=== PATIENT | female | born 1950 | race Hispanic/Latino ===

== ENCOUNTER 2021-11-03 00:30 | Emergency (ER) | payer OTHER ==
[~2021-11-03] VITALS: Ht 154.9 cm; Wt 83.0 kg
[2021-11-03] MEDS ORDERED: DILTIAZEM 50MG VIAL IV ONE (00:36)
[2021-11-03 00:49] LABS: BASOPHILS % (AUTO) 0.6 % (0.0-5.0); EOSINOPHILS % (AUTO) 0.2 % (0.0-8.0); HEMATOCRIT 40.8 % (36-48); LYMPHOCYTES % (AUTO) 13.1 % (21.0-51.0); MEAN CORPUSCULAR HEMOGLOBIN 29.2 pg (27.0-33.0); MEAN CORPUSCULAR HGB CONC 33.6 g/dL (32.0-36.0); MONOCYTES % (AUTO) 3.7 % (3.0-13.0); NEUTROPHILS % (AUTO) 81.7 % (40.0-77.0); PLATELET COUNT (AUTO) 249 K/uL (130-400); RED BLOOD CELL COUNT(AUTO) 4.69 MIL/uL (4.00-5.50); RED CELL DISTRIBUTION WIDTH 14.3 % (11.0-15.5); WHITE BLOOD COUNT (AUTO) 11.8 K/uL (4.8-10.8)
[2021-11-03 00:56] LABS: CREATININE 1.2 mg/dL (0.5-1.5); POTASSIUM 4.4 mmol/L (3.5-5.1)
[2021-11-03 01:01] LABS: ALBUMIN 3.6 g/dL (3.5-5.0); TOTAL PROTEIN, SERUM 7.3 g/dL (6.0-8.3)
[2021-11-03 01:03] LABS: INR 0.97 (0.85-1.15); PROTHROMBIN TIME 10.6 SEC (9.6-11.6)
[2021-11-03] MEDS ORDERED: DILTIAZEM 125 MG/25 ML INJ IV ONE (01:11)
[2021-11-03] MEDS ORDERED: DILTIAZEM 25MG INJ IVP ONE (01:30)
[2021-11-03] MEDS ORDERED: DILTIAZEM 125 MG/25 ML INJ 125 MG in 0.9%NACL 100ML 100 ML IV SCH (01:30)
[2021-11-03] MEDS ORDERED: MIDAZOLAM HCL 5 MG/ML 2ML VIAL IV ONE (02:36)
[2021-11-03 04:34] VITALS: BP 132/74
== END 2021-11-03 04:41 | disposition home or self-care (01) ==
LOC: EDH 00:30
DX: I48.91 Unspecified atrial fibrillation (principal); E11.9 Type 2 diabetes mellitus without complications; E78.00 Pure hypercholesterolemia, unspecified; I10 Essential (primary) hypertension
CPT/HCPCS: 99285; 96374; 71045; 96375; 83735; 84484; 80053; 83880; 85025; 85610; 36415; 96376; 93005; J3490 ×2; J2250

== ENCOUNTER 2022-04-23 16:57 | Emergency (ER) | payer OTHER ==
[~2022-04-23] VITALS: Ht 154.9 cm; Wt 86.2 kg
[2022-04-23 17:27] LABS: BASOPHILS % (AUTO) 0.8 % (0.0-5.0); EOSINOPHILS % (AUTO) 2.1 % (0.0-8.0); HEMATOCRIT 39.2 % (36-48); LYMPHOCYTES % (AUTO) 30.9 % (21.0-51.0); MEAN CORPUSCULAR HEMOGLOBIN 28.2 pg (27.0-33.0); MEAN CORPUSCULAR HGB CONC 31.9 g/dL (32.0-36.0); MEAN CORPUSCULAR VOLUME 88.5 fL (79-99); MONOCYTES % (AUTO) 8.2 % (3.0-13.0); NEUTROPHILS % (AUTO) 56.9 % (40.0-77.0); PLATELET COUNT (AUTO) 295 K/uL (130-400); RED BLOOD CELL COUNT(AUTO) 4.43 MIL/uL (4.00-5.50); RED CELL DISTRIBUTION WIDTH 15.6 % (11.0-15.5); WHITE BLOOD COUNT (AUTO) 13.2 K/uL (4.8-10.8)
[2022-04-23] MEDS ORDERED: ONDANSETRON 4MG INJ IV ONE (17:30)
[2022-04-23] MEDS ORDERED: 0.9%NACL 1000ML 1,000 ML IV SCH (17:30)
[2022-04-23 17:37] LABS: CREATININE 0.8 mg/dL (0.5-1.5)
[2022-04-23 17:38] LABS: INR 1.24 (0.85-1.15); PROTHROMBIN TIME 13.4 SEC (9.6-11.6)
[2022-04-23 17:42] LABS: ALBUMIN 3.1 g/dL (3.5-5.0); TOTAL PROTEIN, SERUM 6.5 g/dL (6.0-8.3)
[2022-04-23] MEDS ORDERED: DOCU-116 PO (18:34)
[2022-04-23 18:42] VITALS: BP 160/92
== END 2022-04-23 18:43 | disposition home or self-care (01) ==
LOC: EDH 16:57
DX: K92.2 Gastrointestinal hemorrhage, unspecified (principal); I48.91 Unspecified atrial fibrillation; E11.9 Type 2 diabetes mellitus without complications; E78.00 Pure hypercholesterolemia, unspecified; I10 Essential (primary) hypertension
CPT/HCPCS: 99284; 96374; 96361; 80053; 85025; 85610; 85730; 36415; 93005; J7030; J2405

== ENCOUNTER 2022-08-09 06:48 | Emergency (ER) | payer OTHER ==
[~2022-08-09] VITALS: Ht 154.9 cm; Wt 85.3 kg
[~2022-08-09 06:48] MED LIST: DOCU-116 PO
[2022-08-09 07:14] LABS: HEMATOCRIT 37.7 % (36-48); MEAN CORPUSCULAR HEMOGLOBIN 24.6 pg (27.0-33.0); MEAN CORPUSCULAR HGB CONC 30.8 g/dL (32.0-36.0); PLATELET COUNT (AUTO) 294 K/uL (130-400); RED BLOOD CELL COUNT(AUTO) 4.71 MIL/uL (4.00-5.50); RED CELL DISTRIBUTION WIDTH 16.1 % (11.0-15.5); WHITE BLOOD COUNT (AUTO) 10.7 K/uL (4.8-10.8)
[2022-08-09 07:25] LABS: ALBUMIN 3.1 g/dL (3.5-5.0); CREATININE 0.6 mg/dL (0.5-1.5); POTASSIUM 4.2 mmol/L (3.5-5.1); TOTAL PROTEIN, SERUM 6.8 g/dL (6.0-8.3)
[2022-08-09] MEDS ORDERED: HYDRALAZINE 20MG/ML VIAL ONE (07:37)
[2022-08-09] MEDS ORDERED: HYDRALAZINE 20MG/ML VIAL IV ONE (08:00)
[2022-08-09 08:25] LABS: BASOPHILS % (MANUAL) 2 % (0-2); EOSINOPHILS % (MANUAL) 1 % (1-6); LYMPHOCYTES % (MANUAL) 32 % (22-44); MAN.DIFF COMMENT-IMPRESSION MANUAL DIFFERENTIAL; MONOCYTES % (MANUAL) 7 % (2-9); SEGMENTED NEUTROPHILS % 58 % (40-70)
[2022-08-09 08:26] LABS: PLATELET MORPHOLOGY COMMENT ADEQUATE
[2022-08-09] MEDS ORDERED: ONDANSETRON 4MG INJ IVP ONE (08:30)
[2022-08-09] MEDS ORDERED: MORPHINE 2 MG SYG IVP ONE (08:30)
[2022-08-09 08:51] LABS: APPEARANCE,URINE CLEAR (CLEAR); BILIRUBIN,URINE NEGATIVE (NEGATIVE); COLOR,URINE COLORLESS (YELLOW); GLUCOSE, URINE (UA) NEGATIVE (NEGATIVE); KETONES,URINE NEGATIVE (NEGATIVE); LEUKOCYTE ESTERASE ,URINE NEGATIVE Leu/uL (NEGATIVE); NITRATE,URINE NEGATIVE (NEGATIVE); OCCULT BLOOD,URINE NEGATIVE (NEGATIVE); PROTEIN,URINE NEGATIVE (NEGATIVE); UROBILINOGEN,URINE 0.2 mg/dL (0.2-1.0)
[2022-08-09 09:05] VITALS: BP 168/80
== END 2022-08-09 09:43 | disposition home or self-care (01) ==
LOC: EDH 06:48
DX: I16.0 Hypertensive urgency (principal); I48.91 Unspecified atrial fibrillation; E11.9 Type 2 diabetes mellitus without complications; E78.00 Pure hypercholesterolemia, unspecified; I10 Essential (primary) hypertension; Z79.899 Other long term (current) drug therapy
CPT/HCPCS: 99291; 96374; 96375; 84484; 80053; 85025; 81003; 36415; 71045; 93005; J0360; J2405

== ENCOUNTER 2022-11-03 10:56 | Emergency (ER) | payer OTHER ==
[~2022-11-03] VITALS: Ht 160 cm; Wt 81.6 kg
[2022-11-03 11:23] LABS: BASOPHILS # (AUTO) 0.08 K/uL (0.00-0.20); EOSINOPHILS # (AUTO) 0.16 K/uL (0.00-0.70); HEMATOCRIT 41.1 % (36-48); IMMATURE GRANULOCYTE ABSOLUTE 0.06 K/uL (0-1); LYMPHOCYTES # (AUTO) 1.9 K/uL (1.0-4.8); LYMPHOCYTES % (AUTO) 23.2 % (21.0-51.0); MEAN CORPUSCULAR HGB CONC 31.4 g/dL (32.0-36.0); MEAN CORPUSCULAR VOLUME 82.7 fL (79-99); MONOCYTES # (AUTO) 0.5 K/uL (0.1-1.0); MONOCYTES % (AUTO) 6.4 % (3.0-13.0); NEUTROPHILS # (AUTO) 5.4 K/uL (1.8-7.7); NEUTROPHILS % (AUTO) 66.7 % (40.0-77.0); PLATELET COUNT (AUTO) 251 K/uL (130-400); RED BLOOD CELL COUNT(AUTO) 4.97 MIL/uL (4.00-5.50); RED CELL DISTRIBUTION WIDTH 17.5 % (11.0-15.5); WHITE BLOOD COUNT (AUTO) 8.1 K/uL (4.8-10.8)
[2022-11-03] MEDS ORDERED: PANTOPRAZOLE 40 MG/VIAL IVP ONE (11:30)
[2022-11-03] MEDS ORDERED: 0.9%NACL 1000ML 1,000 ML IV ONE (11:30)
[2022-11-03] MEDS ORDERED: LIDOCAINE HCL 2% VISCOUS 15 ML UDCUP PO ONE (11:30)
[2022-11-03] MEDS ORDERED: ONDANSETRON 4MG INJ IVP ONE (11:30)
[2022-11-03] MEDS ORDERED: MAG/ALUM/SIMETH 30 ML UDCUP PO ONE (11:30)
[2022-11-03] MEDS ORDERED: MORPHINE 4 MG SYG IVP ONE (11:30)
[2022-11-03 12:17] LABS: CREATININE 0.9 mg/dL (0.5-1.5); POTASSIUM 3.6 mmol/L (3.5-5.1)
[2022-11-03 12:22] LABS: ALBUMIN 3.3 g/dL (3.5-5.0); BILIRUBIN,TOTAL 0.7 mg/dL (0.2-1.0); TOTAL PROTEIN, SERUM 6.7 g/dL (6.0-8.3)
[2022-11-03 12:27] LABS: MAGNESIUM 1.8 mg/dL (1.80-2.40)
[2022-11-03 12:56] LABS: ADD UA MICROSCOPIC YES; APPEARANCE,URINE CLEAR (CLEAR); BILIRUBIN,URINE NEGATIVE (NEGATIVE); COLOR,URINE LIGHT-YELLOW (YELLOW); GLUCOSE, URINE (UA) NEGATIVE (NEGATIVE); KETONES,URINE NEGATIVE (NEGATIVE); LEUKOCYTE ESTERASE ,URINE 75 Leu/uL (NEGATIVE); NITRATE,URINE NEGATIVE (NEGATIVE); OCCULT BLOOD,URINE NEGATIVE (NEGATIVE); PROTEIN,URINE NEGATIVE (NEGATIVE); UROBILINOGEN,URINE 0.2 mg/dL (0.2-1.0)
[2022-11-03 13:02] LABS: BACTERIA,URINE RARE /HPF (None Seen); MUCUS,URINE RARE LPF (None Seen); SQUAMOUS EPITHELIAL CELL,UR RARE /HPF (0-2); WBC,URINE 0-1 /HPF (0-1)
[2022-11-03] MEDS ORDERED: CEFTRIAXONE 1G VIAL IVPB ONE (13:40)
[2022-11-03 14:57] VITALS: BP 133/78; PULSE 78; RESP 18; O2SAT 98
== END 2022-11-03 14:59 | disposition home or self-care (01) ==
LOC: EDH 10:56
DX: K29.70 Gastritis, unspecified, without bleeding (principal); R10.13 Epigastric pain; R11.2 Nausea with vomiting, unspecified; I10 Essential (primary) hypertension; E78.00 Pure hypercholesterolemia, unspecified; E11.9 Type 2 diabetes mellitus without complications; I48.91 Unspecified atrial fibrillation
CPT/HCPCS: 99285; 96365; 96375; 76705; 71045; 96361; 82550; 83735; 83874; 84484; 80053; 83690; 85025; 87088; 81001; 36415; 93005 ×2; J7030; J0696; J2405; J2270; C9113

== ENCOUNTER → 2023-01-18 | Outpatient (CLI) | payer OTHER | END | disposition home or self-care (01) | LOC: RAH 11:04 | PROVIDERS: ATTEND Family Medicine | DX: Z12.31 Encounter for screening mammogram for malignant neoplasm of breast (principal) | CPT/HCPCS: 77067 ==

== ENCOUNTER → 2023-05-16 | Outpatient (CLI) | payer OTHER ==
[~2023-05-16] MED LIST changes: +AEC81 PO; +AMOX1TAB16 PO; +CLON0.1T PO; +METO-391 PO; +PANT40TA54 PO; +RIVA20TA PO; +ROSU5TAB12 PO; +TELM80TA10 PO
== END | disposition home or self-care (01) ==
LOC: OIH 15:29
PROVIDERS: ATTEND Internal Medicine Cardiovascular Disease
DX: Z13.6 Encounter for screening for cardiovascular disorders (principal)
CPT/HCPCS: 75571

== ENCOUNTER 2023-07-14 12:53 | Emergency (ER) | payer OTHER ==
[~2023-07-14] VITALS: Ht 154.9 cm; Wt 84.8 kg
[2023-07-14] MEDS: ONDANSETRON 4MG INJ IVP ONE (13:30)
[2023-07-14] MEDS: 0.9%NACL 1000ML 1,000 ML IV ONE (13:30)
[2023-07-14] MEDS: KETOROLAC 15MG/ML VIAL (15MG/ML) IV ONE (13:30)
[2023-07-14 13:35] LABS: APPEARANCE,URINE CLEAR (CLEAR); BILIRUBIN,URINE NEGATIVE (NEGATIVE); COLOR,URINE LIGHT-YELLOW (YELLOW); GLUCOSE, URINE (UA) NEGATIVE (NEGATIVE); KETONES,URINE 10 mg/dL (NEGATIVE); LEUKOCYTE ESTERASE ,URINE NEGATIVE Leu/uL (NEGATIVE); NITRATE,URINE NEGATIVE (NEGATIVE); OCCULT BLOOD,URINE MODERATE (NEGATIVE); PROTEIN,URINE 10 mg/dL (NEGATIVE); UROBILINOGEN,URINE 0.2 mg/dL (0.2-1.0)
[2023-07-14 13:39] LABS: ADD UA MICROSCOPIC YES
[2023-07-14 13:44] LABS: BACTERIA,URINE RARE /HPF (None Seen); MUCUS,URINE RARE LPF (None Seen); SQUAMOUS EPITHELIAL CELL,UR RARE /HPF (0-2)
[2023-07-14 13:48] LABS: BASOPHILS # (AUTO) 0.06 K/uL (0.00-0.20); BASOPHILS % (AUTO) 0.6 % (0.0-5.0); EOSINOPHILS # (AUTO) 0.12 K/uL (0.00-0.70); EOSINOPHILS % (AUTO) 1.1 % (0.0-8.0); IMMATURE GRANULOCYTE ABSOLUTE 0.05 K/uL (0-1); LYMPHOCYTES # (AUTO) 0.7 K/uL (1.0-4.8); LYMPHOCYTES % (AUTO) 6.9 % (21.0-51.0); MEAN CORPUSCULAR HEMOGLOBIN 27.3 pg (27.0-33.0); MEAN CORPUSCULAR HGB CONC 32.1 g/dL (32.0-36.0); MEAN CORPUSCULAR VOLUME 85.1 fL (79-99); MONOCYTES % (AUTO) 9.5 % (3.0-13.0); NEUTROPHILS # (AUTO) 8.6 K/uL (1.8-7.7); NEUTROPHILS % (AUTO) 81.4 % (40.0-77.0); PLATELET COUNT (AUTO) 284 K/uL (130-400); RED BLOOD CELL COUNT(AUTO) 5.05 MIL/uL (4.00-5.50); RED CELL DISTRIBUTION WIDTH 15.8 % (11.0-15.5); WHITE BLOOD COUNT (AUTO) 10.6 K/uL (4.8-10.8)
[2023-07-14 14:03] LABS: ALBUMIN 3.6 g/dL (3.5-5.0); BILIRUBIN,TOTAL 0.8 mg/dL (0.2-1.0); CREATININE 0.8 mg/dL (0.5-1.0); POTASSIUM 3.5 mmol/L (3.5-5.1); TOTAL PROTEIN, SERUM 7.6 g/dL (6.0-8.3)
[2023-07-14 14:08] LABS: INFLUENZA TYPE A Negative For Type A (NEGATIVE); INFLUENZA TYPE B Negative For Type B (NEGATIVE)
[2023-07-14 14:19] LABS: COVID19 (SARS ANTIGEN RAPID) POSITIVE FOR SARS AG (NEGATIVE)
[2023-07-14 14:31] VITALS: BP 149/73; PULSE 80; RESP 19; O2SAT 96
== END 2023-07-14 14:41 | disposition home or self-care (01) ==
LOC: EDH 12:53
DX: U07.1 COVID-19 (principal); R50.9 Fever, unspecified; R51.9 Headache, unspecified; E11.9 Type 2 diabetes mellitus without complications; E78.00 Pure hypercholesterolemia, unspecified; I10 Essential (primary) hypertension; I48.91 Unspecified atrial fibrillation; Z79.01 Long term (current) use of anticoagulants; Z79.82 Long term (current) use of aspirin; Z79.899 Other long term (current) drug therapy
CPT/HCPCS: 99285; 96374; 71045; 96361; 96375; 87426; 84484; 80053; 85025; 87040 ×2; 87804 ×2; 83605; 81001; 36415; 93005; J7030; J2405; J1885

== ENCOUNTER → 2024-01-18 | Outpatient (CLI) | payer OTHER ==
[~2024-01-18] MED LIST changes: -ROSU5TAB12 PO; +ROSU5TAB43 PO
== END | disposition home or self-care (01) ==
LOC: RAH 15:05
PROVIDERS: ATTEND Internal Medicine
DX: Z12.31 Encounter for screening mammogram for malignant neoplasm of breast (principal); R92.323 Mammographic fibroglandular density, bilateral breasts
CPT/HCPCS: 77067

== ENCOUNTER → 2024-06-06 | Outpatient (CLI) | payer OTHER ==
[~2024-06-06] MED LIST changes: -ROSU5TAB43 PO; +ROSU5TAB51 PO
--- NOTE | 2024-06-06 09:53 | HMCIMG ---
LEFT SHOULDER RADIOGRAPHS - 2-3 VIEWS INDICATION: Pain COMPARISON: None FINDINGS: No evidence for acute fracture or dislocation. Acromioclavicular and glenohumeral alignments are well maintained. Visible portions of the left clavicle are intact. No significant degenerative joint disease. Mild calcific plaque is present along the aortic arch daugherty. IMPRESSION: No radiographic evidence for any acute left shoulder abnormality.
--- NOTE | 2024-06-06 09:54 | HMCIMG ---
RIGHT SHOULDER RADIOGRAPHS - 2-3 VIEWS INDICATION: Pain COMPARISON: None FINDINGS: No fracture or dislocation identified. Acromioclavicular and glenohumeral alignments are well maintained. Visible portions of the right clavicle are intact. Extensive inferior acromial spurring. Nominal acromioclavicular joint osteoarthropathy. Narrowing of the acromiohumeral space. IMPRESSION: Findings suggesting external impingement and possible underlying chronic rotator cuff tear.
== END | disposition home or self-care (01) ==
LOC: RAH 08:41
PROVIDERS: ATTEND Internal Medicine
DX: M19.011 Primary osteoarthritis, right shoulder (principal); M79.601 Pain in right arm; M79.602 Pain in left arm; M77.8 Other enthesopathies, not elsewhere classified; I70.0 Atherosclerosis of aorta
CPT/HCPCS: 73030

== ENCOUNTER 2024-12-04 07:19 | Inpatient (IN) | payer OTHER ==
[2024-12-03 10:15] VITALS: BP 104/62; PULSE 59; RESP 13; TEMP 97.2
[2024-12-03 10:19] LABS: IMMATURE GRANULOCYTE ABSOLUTE 0.02 K/uL (0-1); NUCLEATED RED BLOOD CELLS 0.0 % (0.0-0.19); PLATELET COUNT (AUTO) 239 K/uL (130-400); RED BLOOD CELL COUNT(AUTO) 4.99 MIL/uL (4.00-5.50); RED CELL DISTRIBUTION WIDTH 14.8 % (11.0-15.5); WHITE BLOOD COUNT (AUTO) 7.3 K/uL (4.8-10.8)
[2024-12-03 10:28] LABS: INR 1.02 (0.85-1.15)
[2024-12-03 10:33] LABS: APPEARANCE,URINE CLOUDY (CLEAR); GLUCOSE, URINE (UA) NEGATIVE (NEGATIVE); LEUKOCYTE ESTERASE ,URINE NEGATIVE Leu/uL (NEGATIVE); NITRATE,URINE NEGATIVE (NEGATIVE); OCCULT BLOOD,URINE NEGATIVE (NEGATIVE)
[2024-12-03 10:40] LABS: ADD UA MICROSCOPIC YES
--- NOTE | 2024-12-03 10:40 | NUR ---
RE: IS INITIAL IS INITIAL TEACHING DONE BY RT ROMAINE DURING PREOP.
[2024-12-03 10:43] LABS: HYALINE CASTS, URINE 26-50 /LPF (0-1 /LPF); SQUAMOUS EPITHELIAL CELL,UR Rare /HPF (0-2)
[2024-12-03 10:56] LABS: CREATININE 1.1 mg/dL (0.5-1.0); GLOMERULAR FILTR. RATE CALC 53.0 mL/min (>90); GLUCOSE,RANDOM 97.0 mg/dL (70-105); SODIUM SERUM 139.0 mmol/L (136-145); UREA NITROGEN, BLOOD 17.0 mg/dL (7-18)
[~2024-12-04] VITALS: Ht 154.9 cm; Wt 85.4 kg
[2024-12-04] VITALS (27 sets, daily range): BP systolic 103–155; BP diastolic 60–87; PULSE 61–75; RESP 15–20; TEMP 97.5–98.6; O2SAT 93
[~2024-12-04 07:19] MED LIST changes: -AEC81 PO; +ALEN70TA80 PO; -AMOX1TAB16 PO; +BRIM5DRO5 OU; +CHOL500051 PO; -CLON0.1T PO; -DOCU-116 PO; +HYDR-4060 PO; +LIDOCAINE PF 100MG/5ML (2%) SYRINGE 5ML ONE; +LOSA1TAB37 PO; +MIDAZOLAM HCL 1 MG/ML 2ML VIAL ONE; +NETA2.5D3 OU; +NIFE-78 PO; -PANT40TA54 PO; +ROSU20TA98 PO; -ROSU5TAB51 PO; +SUCCINYLCHOLINE CHLORIDE 20 MG/ML 10 ML VIAL ONE; -TELM80TA10 PO; +TIMO.5OS OU; +TRANEXAMIC ACID 1000MG/10ML ONE; +VANCOMYCIN 500MG+NS 100ML 100 ML IV ONE
--- NOTE | 2024-12-04 08:53 | EKG ---
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
[2024-12-04] MEDS: LACTATED RINGERS 1000ML 1,000 ML IV ONE (09:01)
[2024-12-04] MEDS: SUGAMMADEX SODIUM 200 MG/2 ML VIAL IV ONE (10:23)
--- NOTE | 2024-12-04 11:19 | OP ---
Operative Note: DATE OF PROCEDURE: 12/04/24 SURGEON: SHAWNA BANERJEE MD TIMBER FRAMER: [Marleny Joe CFA] ANESTHESIA: [General anesthesia plus regional block] ANESTHESIOLOGIST/FORGE HELPER: [Shayne Prado CRNA] PREOPERATIVE DIAGNOSIS: [Left knee osteoarthritis] POSTOPERATIVE DIAGNOSIS: [Left knee osteoarthritis] IMPLANTS: [BIOMET VANGUARD. Femur size 65 right PS. Tibia size 67 fixed cruciate. Patella size 31 x 8, asymmetric. Tibial liner size 10 x 63/67 PS] PROCEDURE: [Left total knee arthroplasty] ESTIMATED BLOOD LOSS: [100 mL] INDICATIONS: [Patient is a 74 year old female with a history of severe pain to the left knee that has no longer responded to conservative treatment. The patient has an x-ray that reveals severe arthrosis of the knee mostly motor of the medial compartment. She has been brought to the operating room for a total knee arthroplasty, procedure that she understood, risks, benefits and possible complications and agreed signed the consent form] DESCRIPTION OF PROCEDURE: [After adequate general anesthesia was achieved and regional block obtained the right lower extremity was prepped and draped in the usual manner previous placement of the tourniquet in the proximal thigh. The extremity was then elevated and exsanguinated with an Esmarch bandage and the tourniquet inflated to 250 mmHg the Esmarch band been then removed. With the knee in flexion a longitudinal incision was then made in the anterior aspect through the skin followed by dissection of the subcutaneous tissue. A bone infusion needle was then inserted just medial to the tibial tuberosity and through this needle we injected into the bone a solution of normal saline 50 mL mixed with 500 mg of vancomycin. The needle was removed. A paramedian approach was then made with the Bovie cautery cutting through the quadriceps tendon, medial patellar retinaculum and patellar tendon retinaculum. The retropatellar tendon fat was then excised and the soft tissue elements of the tibia were elevated subperiosteally and retractors were applied medially and laterally . The anterior and posterior cruciate ligaments were resected. With the use of a drill a starting hole was made in the distal femur entering the intramedullary canal and then after removal of the drill an intramedullary guide was inserted with a 5 degree valgus block that touched the distal femur and to this the distal femoral cutting guide was then applied anteriorly and was secured to the distal femur with the use of pins. The intramedullary guide was then removed and with the use of the oscillating saw we proceeded to resect the distal femur removing the fragments and the guide. The femoral sizer was then applied distally and drill holes were made removing the sizer and the 4-in-1 cutting block was then inserted and the anterior, posterior and chamfer cuts were made removing the fragments and the block. The PS cutting guide was then inserted and the intercondylar cut was made removing the fragment and the guide. The posterior cruciate ligament retractor was then inserted posterior to the tibia and this was brought forward proceeding then to apply the external tibial ali gnment guide and secured the proximal cutting guide to the tibia with the use of pins. With the use of the oscillating saw the proximal cut to the tibia tibia was made. The bone fragment was removed and the trial tibia plate was chosen. At this point the menisci were removed sharply and and after cutting the medial side it was noted that the patient had a large Doyle cyst that drain significant amount of fluid under the cyst complete distal fear from the posterior aspect of the medial gastrocnemius area. With the use of the curved osteotome the posterior osteophytes of the femur were removed. The trial components were then inserted at the femur and tibia with a trial tibial liner bringing the knee into extension noticing that the patient had a very stable knee in flexion, extension and with valgus and varus stress. The knee was maintained in extension and the patella was then addressed proceeding to measure its thickness and then with the use of the oscillating saw we removed eight mm from the articular s urface and restored the height with application of a trial component after 3 peg holes were made. The patellofemoral ligament was removed and then the patellofemoral tracking was checked noticing to be slightly lateralized and for this reason a small lateral release was done, correcting the problem the tracking going back to normal. At this moment all the components were removed, the tibia after the metaphyseal defect was created and while cement was being mixed on the back table we proceeded to irrigate the joint with antibiotic solution and then cover the entry to the femoral canal with a bone plug. Once the cement was ready we proceeded to apply it first to the tibia surface inserting the final component and then to the femoral surface and inserted the final component removing the excess cement and then applying a trial liner bringing the knee into extension for compression. Then we proceeded to irrigate the patella surface and dried it applying then bone cement and the final patellar component was inserted and was secured with application of a clamp. The joint was irrigated with a warm diluted Betadine solution while the cement dried followed by irrigation with antibiotic solution. The trial liner was removed as well as the patellar clamp and we proceeded then to irrigate the posterior aspect of the joint to remove all the remaining debris and the final tibial liner was inserted and locked against the tibia. The range of motion was checked and noticed to be adequate with full extension and flexion, no laxity in valgus or varus stress and with adequate patellofemoral tracking. The patient had no anterior or posterior drawer. The tourniquet was then deflated and this was followed by hemostasis and the wound was then closed with approximation of the quadriceps tendon, patellar retinaculum and patellar tendon retinaculum with #1 Vicryl close stitches alternating with #1 Ethibond stitches, and closure of the subcutaneous tissue with 2-0 Monocryl inverted stitches and the skin was closed with 3-0 Monocryl subcuticularly. The wound was covered with a suction dressing followed by application of an Candelario bandage for compression and the d rapes were then removed transferring the patient to the hospital bed and taken to recovery room for follow-up by anesthesia. There were no complications during the procedure.] SHAWNA BANERJEE MD Dec 04, 2024 11:19
[2024-12-04] MEDS ORDERED: FERROUS FUMARATE 324 MG TABLET PO PRN (11:30)
[2024-12-04] MEDS ORDERED: CALCIUM CARB 500MG PO PRN (11:30)
[2024-12-04] MEDS ORDERED: PoTASSium chl 10% ELIXIR 20MEQ 20 MEQ/15 ML UDCUP PO PRN (11:30)
[2024-12-04] MEDS ORDERED: HYDROcodone/APAP 5/325 1 TAB TABLET PO PRN (11:30)
[2024-12-04] MEDS: 0.9%NACL 1000ML 1,000 ML IV SCH (12:40)
--- NOTE | 2024-12-04 12:40 | NUR ---
PT ARRIVED TO UNIT. S/P RT TKA, DRESSING DRY AND INTACT. AAO, MILD PAIN, DROWSY. POST OP VITALS CONNECTED. BP STABLE. CHARGE NURSE AT BEDSIDE. WILL CONTINUE TO MONITOR.
--- NOTE | 2024-12-04 12:40 | NUR ---
PT is received from the recovery room. She is alert and in no distress. Patient is oriented to the room and is updated on the current treatment plan. PT agreed to notify nursing with the call butler for any of her needs. SCDs are placed to both lower extremities. IV fluids are running by IV pumpt into a 20 g PIV located in her left hand. ICE is applied to the right knee over the compression wrap. YUVAL dressing device is secured in the patient's pocket and she is educated on its purpose. The call butler is left in reach and the bed is in a low position.
--- NOTE | 2024-12-04 13:29 | OP ---
Operative Note: DATE OF PROCEDURE: 12/04/24 SURGEON: SHAWNA BANERJEE MD BLAST FURNACE KEEPER HELPER: [Eriberto Kraus CFA] ANESTHESIA: [General anesthesia plus regional block] ANESTHESIOLOGIST/ROLE PLAYER: [Shayne Prado CRNA] PREOPERATIVE DIAGNOSIS: [Right knee osteoarthritis] POSTOPERATIVE DIAGNOSIS: [Right knee osteoarthritis] IMPLANTS: [BIOMET VANGUARD. Femur size 65 right PS. Tibia size 67 fixed cruciate. Patella size 31 x 8, asymmetric. Tibial liner size 10 x 63/67 PS] PROCEDURE: [Right total knee arthroplasty] ESTIMATED BLOOD LOSS: [100 mL] INDICATIONS: [Patient is a 74 year old female with a history of severe pain to the right knee that has no longer responded to conservative treatment. The patient has an x-ray that reveals severe arthrosis of the knee mostly motor of the medial compartment. She has been brought to the operating room for a total knee arthroplasty, procedure that she understood, risks, benefits and possible complications and agreed signed the consent form] DESCRIPTION OF PROCEDURE: [After adequate general anesthesia was achieved and regional block obtained the right lower extremity was prepped and draped in the usual manner previous placement of the tourniquet in the proximal thigh. The extremity was then elevated and exsanguinated with an Esmarch bandage and the tourniquet inflated to 250 mmHg the Esmarch band been then removed. With the knee in flexion a longitudinal incision was then made in the anterior aspect through the skin followed by dissection of the subcutaneous tissue. A bone infusion needle was then inserted just medial to the tibial tuberosity and through this needle we injected into the bone a solution of normal saline 50 mL mixed with 500 mg of vancomycin. The needle was removed. A paramedian approach was then made with the Bovie cautery cutting through the quadriceps tendon, medial patellar retinaculum and patellar tendon retinaculum. The retropatellar tendon fat was then excised and the soft tissue elements of the tibia were elevated subperiosteally and retractors were applied medially and laterally . The anterior and posterior cruciate ligaments were resected. With the use of a drill a starting hole was made in the distal femur entering the intramedullary canal and then after removal of the drill an intramedullary guide was inserted with a 5 degree valgus block that touched the distal femur and to this the distal femoral cutting guide was then applied anteriorly and was secured to the distal femur with the use of pins. The intramedullary guide was then removed and with the use of the oscillating saw we proceeded to resect the distal femur removing the fragments and the guide. The femoral sizer was then applied distally and drill holes were made removing the sizer and the 4-in-1 cutting b lock was then inserted and the anterior, posterior and chamfer cuts were made removing the fragments and the block. The PS cutting guide was then inserted and the intercondylar cut was made removing the fragment and the guide. The posterior cruciate ligament retractor was then inserted posterior to the tibia and this was brought forward proceeding then to apply the external tibial alignment guide and secured the proximal cutting guide to the tibia with the use of pins. With the use of the oscillating saw the proximal cut to the tibia tibia was made. The bone fragment was removed and the trial tibia plate was chosen. At this point the menisci were removed sharply. With the use of the curved osteotome the posterior osteophytes of the femur were removed. The trial components were then inserted at the femur and tibia with a trial tibial liner bringing the knee into extension noticing that the patient had a very stable knee in flexion, extension and with valgus and varus stress. The knee was maintained in extension and the patella was then addressed proceeding to measure its thickness and then with the use of the oscillating saw we removed eight mm from the articular surface and restored the height with application of a trial component after 3 peg holes were made. The patellofemoral ligament was removed and then the patellofemoral tracking was checked noticing to be slightly lateralized and for this reason a small lateral release was done, correcting the problem the tracking going back to normal. At this moment all the components were removed, the tibia after the metaphyseal defect was created and while cement was being mixed on the back table we proceeded to irrigate the joint with antibiotic solution and then cover the entry to the femoral canal with a bone plug. Once the cement was ready we proceeded to apply it first to the tibia surface inserting the final component and then to the femoral surface and inserted the final component removing the excess cement and then applying a trial liner bringing the knee into extension for compression. Then we proceeded to irrigate the patella surface and dried it applying then bone cement and the final patellar component was inserted and was secured with application of a clamp. The joint was irrigated with a warm diluted Betadine solution while the cement dried followed by irrigation with antibiotic solution. The trial liner was removed as well as the patellar clamp and we proceeded then to irrigate the posterior aspect of the joint to remove all the remaining debris and the final tibial liner was inserted and locked against the tibia. The range of motion was checked and noticed to be adequate with full extension and flexion, no laxity in valgus or varus stress and with adequate patellofemoral tracking. The patient had no anterior or posterior drawer. The tourniquet was then deflated and this was followed by hemostasis and the wound was then closed with approximation of the quadriceps tendon, patellar retinaculum and patellar tendon retinaculum with #1 Vicryl close stitches alternating with #1 Ethibond stitches, and closure of the subcutaneous tissue with 2-0 Monocryl inverted stitches and the skin was closed with 3-0 Monocryl subcuticularly. The wound was covered with a suction dressing followed by application of an Candelario bandage for compression and the drapes were then removed transferring the patient to the hospital bed and taken to recovery room for follow-up by anesthesia. There were no complications during the procedure.] SHAWNA BANERJEE MD, JOSE A MD Dec 04, 2024 13:29
--- NOTE | 2024-12-04 15:00 | NUR ---
Ortho Coordinator: Teaching regarding DVT and pneumonia prevention, pain expectations and pain management. Patient in bed. Son at bedside. Candelario wrap and ice pack to right knee. YUVAL system intact and functioning. B SCD's intact and functioning. No incentive spirometer at bedside. Patient return demonstrated proper foot flexion and extension exercises, rationale provided. Patient encouraged to perform self pain assessments every four hours at the minimum. Pain medication regimen reviewed. Numeric pain scale reviewed, patient instructed to provide number value and type of pain. Reminded patient pain medication must be requested and call when needed. Patient intends to discharge to rehab, reviewed process. Set expectation for patient to shower tomorrow, rationale provided. Patient verbalized understanding to all instructions. No additional questions or concerns. 1510 Report to primary nurse. Primary nurse has yet to call for respiratory as physical therapy was evaluating patient. Primary nurse will notify respiratory therapy.
--- NOTE | 2024-12-04 15:14 | NUR ---
DC PLAN VISITED WITH PATIENT. GAVE LIST OF [facility] IN NETWORK WITH INSURANCE. EXPLAINED THAT [facility] DID NOT APPEAR TO BE IN NETWORK. WOULD TRY IF PATIENT WANTED. FROM LIST FROM [facility]. LUBNA SIGNED. PACKET MADE AND SENT. Addendum: 12/04/24 at 1516 by PALAK LINK RN CM Amended: Links added.
[2024-12-04] MEDS: HYDROcodone/APAP 5/325 1 TAB TABLET PO PRN (17:45)
[2024-12-04] MEDS: LOSARTAN/HYDROCHLOROTHIAZIDE 50-12.5MG TABLET PO SCH (20:06)
[2024-12-04] MEDS: PoTASSium chloRIDE 20MEQ ER 20 MEQ ERTAB PO PRN (20:13)
[2024-12-04] MEDS: FAMOTIDINE 20MG TAB PO SCH (20:13)
[2024-12-04] MEDS: LATANOPROST OU SCH (20:14)
[2024-12-04] MEDS: TIMOLOL MALEATE 0.5% 5 ML BOTTLE OU SCH (20:14)
[2024-12-04] MEDS: NETARSUDIL MESYLAT OU SCH (20:14)
[2024-12-04] MEDS: RIVAROXABAN 20 MG TABLET PO SCH (20:20)
[2024-12-04] MEDS ORDERED: RIVAROXABAN 20 MG TABLET PO SCH (21:00)
[2024-12-05] VITALS (7 sets, daily range): BP systolic 103–132; BP diastolic 59–77; PULSE 64–68; RESP 16–18; TEMP 96–98.7; O2SAT 94–99
[2024-12-05 06:08] LABS: NUCLEATED RED BLOOD CELLS 0.0 % (0.0-0.19); PLATELET COUNT (AUTO) 190.0 K/uL (130-400); RED BLOOD CELL COUNT(AUTO) 3.66 MIL/uL (4.00-5.50); RED CELL DISTRIBUTION WIDTH 14.9 % (11.0-15.5); WHITE BLOOD COUNT (AUTO) 11.7 K/uL (4.8-10.8)
--- NOTE | 2024-12-05 06:30 | NUR ---
nurse note patient alert and oriented times 4. daughter in law at bedside. patient is ambulatory with assistance and with a walker to the restroom. she has moderate to severe pain tonight relieved by pain medication. I removed the reynaldo bandage as ordered. call light within reach, ice packs applied, scd's on, patient is now on the chair. will continue to monitor patient.
--- NOTE | 2024-12-05 06:32 | NUR ---
chair took patient to the chair this morning. ice packs applied to right knee. reynaldo bandage removed. scd's on. call light within reach.
[2024-12-05 06:42] LABS: CREATININE 0.9 mg/dL (0.5-1.0); GLOMERULAR FILTR. RATE CALC 68.0 mL/min (>90); GLUCOSE,RANDOM 127.0 mg/dL (70-105); SODIUM SERUM 138.0 mmol/L (136-145); UREA NITROGEN, BLOOD 18.0 mg/dL (7-18)
--- NOTE | 2024-12-05 15:20 | NUR ---
Ortho Coordinator: Reinforced teaching. Patient in bed. YUVAL dressing clean, dry and intact. System functioning as indicated by light blinking green. B SCD s in place and functioning. Incentive spirometer at bedside. Patient able to verbalized frequency of use and reports using. Patient reports pain controlled. Patient intends to discharge to SNF, next steps and expectations reviewed. Patient encouraged to continue use of incentive spirometer until achieves and increase in activity, to continue foot flexion and extension exercises, to continue premedicating prior to physical therapy and periods of high activity, to ambulate and hydrate. Patient encouraged to shower today, rationale provided. Rationale provided for all instructions. Patient verbalized understanding. No additional questions or concerns at this time. 1530 Discussion with primary nurse that ortho coordinator set expectation with patient to shower today. Primary nurse acknowledged communication.
--- NOTE | 2024-12-05 17:26 | PN ---
Postop day 1. Status post total knee arthroplasty. Vital signs stable, afebrile. Labs reviewed. Patient informed about the findings of the surgery. She has adequate pain control. Did well with physical therapy She is awake, alert and oriented She is in no respiratory distress Dressing is intact, distal neurovascular exam is normal. Assessment: Status post total knee arthroplasty. Plan: Case management working on placement. Continue physical therapy Vitals/Labs Vital Signs Date Time Temp Pulse Resp B/P (MAP) Pulse Ox O2 Delivery O2 Flow Rate FiO2 12/05/24 16:05 96.8 68 18 132/77 95 Room Air 21 12/05/24 08:20 0 Laboratory Tests 12/05/24 05:16 Medications Current Medications Tranexamic Acid 1,000 mg STK-MED ONCE .ROUTE; Start 12/04/24 at 06:57; Stop 12/04/24 at 06:58; Status DC Vancomycin HCl 100 ml @ As Directed STK-MED ONCE IV; Start 12/04/24 at 06:57; Stop 12/04/24 at 06:58; Status DC Cefazolin Sodium 1 gm STK-MED ONCE .ROUTE; Start 12/04/24 at 06:58; Stop 12/04/24 at 06:58; Status DC Lidocaine HCl 100 mg STK-MED ONCE .ROUTE; Start 12/04/24 at 07:12; Stop 12/04/24 at 07:12; Status DC Dexamethasone Sodium Phosphate 10 mg STK-MED ONCE .ROUTE; Start 12/04/24 at 07:12; Stop 12/04/24 at 07:12; Status DC Succinylcholine Chloride 200 mg STK-MED ONCE .ROUTE; Start 12/04/24 at 07:12; Stop 12/04/24 at 07:12; Status DC Propofol 200 mg STK-MED ONCE IV; Start 12/04/24 at 07:13; Stop 12/04/24 at 07:13; Status DC Midazolam HCl 2 mg STK-MED ONCE .ROUTE; Start 12/04/24 at 07:13; Stop 12/04/24 at 07:13; Status DC Fentanyl Citrate 100 mcg STK-MED ONCE .ROUTE; Start 12/04/24 at 07:13; Stop 12/04/24 at 07:14; Status DC Ketamine HCl 50 mg STK-MED ONCE .ROUTE; Start 12/04/24 at 07:16; Stop 12/04/24 at 07:16; Status DC Rocuronium [place] 50 mg STK-MED ONCE .ROUTE; Start 12/04/24 at 07:16; Stop 12/04/24 at 07:16; Status DC Phenylephrine HCl 10 mg STK-MED ONCE IV; Start 12/04/24 at 07:21; Stop 12/04/24 at 07:21; Status DC Ropivacaine 150 mg STK-MED ONCE .ROUTE; Start 12/04/24 at 07:21; Stop 12/04/24 at 07:22; Status DC Cefazolin Sodium 2 gm STK-MED ONCE .ROUTE; Start 12/04/24 at 07:42; Stop 12/04/24 at 07:42; Status DC Lactated Ringer's 1,000 ml @ As Directed STK-MED ONCE IV Last administered on 12/04/24at 09:01; Start 12/04/24 at 07:42; Stop 12/04/24 at 07:43; Status DC Ephedrine Sulfate 50 mg STK-MED ONCE .ROUTE; Start 12/04/24 at 09:20; Stop 12/04/24 at 09:20; Status DC Fentanyl Citrate 100 mcg STK-MED ONCE .ROUTE; Start 12/04/24 at 10:00; Stop 12/04/24 at 10:00; Status DC Cefazolin Sodium 2 gm STK-MED ONCE IVPB Last administered on 12/04/24at 09:32; Start 12/04/24 at 09:32; Stop 12/04/24 at 10:05; Status DC Tranexamic Acid 1,000 mg STK-MED ONCE IV Last administered on 12/04/24at 09:35; Start 12/04/24 at 09:35; Stop 12/04/24 at 10:05; Status DC Cefazolin Sodium 3 gm STK-MED ONCE IVPB Last administered on 12/04/24at 09:49; Start 12/04/24 at 09:49; Stop 12/04/24 at 10:05; Status DC Vancomycin HCl 500 mg STK-MED ONCE IJ Last administered on 12/04/24at 10:00; Start 12/04/24 at 10:00; Stop 12/04/24 at 10:05; Status DC Rocuronium [place] 50 mg STK-MED ONCE .ROUTE; Start 12/04/24 at 10:22; Stop 12/04/24 at 10:22; Status DC Sodium Chloride 1,000 ml @ 100 mls/hr Q10H IV Last administered on 12/05/24at 02:11; Start 12/04/24 at 11:30; Stop 12/05/24 at 03:45; Status DC Polyethylene Glycol 17 gm DAILY PO Last administered on 12/05/24at 09:59; Start 12/05/24 at 09:00; Stop 01/04/25 at 08:59 Bisacodyl 10 mg DAILY PRN RC; Start 12/07/24 at 11:30; Stop 01/06/25 at 11:29 Ketorolac Tromethamine 15 mg Q6H PRN IV Last administered on 12/05/24at 17:00; Start 12/04/24 at 11:30; Stop 12/09/24 at 11:29 Famotidine 20 mg BID PO Last administered on 12/05/24at 09:57; Start 12/04/24 at 21:00; Stop 01/03/25 at 20:59 Ferrous Fumarate 324 mg DAILY PRN PO; Start 12/04/24 at 11:30; Stop 01/03/25 at 11:29 Temazepam 15 mg HS PRN PO; Start 12/04/24 at 11:30; Stop 01/03/25 at 11:29 Ondansetron HCl 4 mg Q6H PRN IVP; Start 12/04/24 at 11:30; Stop 01/03/25 at 11:29 Calcium Carbonate 500 mg Q12H PRN PO; Start 12/04/24 at 11:30; Stop 01/03/25 at 11:29 Diphenhydramine HCl 25 mg Q6H PRN IVP; Start 12/04/24 at 11:30; Stop 01/03/25 at 11:29 Cefazolin Sodium 2 gm Q8H IVPB Last administered on 12/04/24at 23:32; Start 12/04/24 at 16:30; Stop 12/05/24 at 00:31; Status DC Potassium Chloride 100 ml @ 100 mls/hr AD PRN IV; Start 12/04/24 at 11:30; Stop 01/03/25 at 11:29 Potassium Chloride 20 meq AD PRN PO; Start 12/04/24 at 11:30; Stop 01/03/25 at 11:29 Potassium Chloride 20 meq AD PRN PO Last administered on 12/04/24at 20:13; Start 12/04/24 at 11:30; Stop 01/03/25 at 11:29 Acetaminophen/ Hydrocodone Bitart Q4H PRN PO; Start 12/04/24 at 11:30; Stop 12/04/24 at 11:29; Status DC Acetaminophen/ Hydrocodone Bitart 1 tab Q4H PRN PO; Start 12/04/24 at 11:30; Stop 12/09/24 at 11:29 Acetaminophen/ Hydrocodone Bitart 2 tab Q4H PRN PO Last administered on 12/05/24at 15:10; Start 12/04/24 at 11:30; Stop 12/09/24 at 11:29 Fentanyl Citrate 25 mcg ONCE ONCE IVP; Start 12/04/24 at 12:00; Stop 12/04/24 at 12:01; Status DC Fentanyl Citrate 100 mcg STK-MED ONCE .ROUTE Last administered on 12/04/24at 11:51; Start 12/04/24 at 11:46; Stop 12/04/24 at 11:46; Status DC HCTZ/Losartan Potassium 1 tab BID PO Last administered on 12/05/24at 09:57; Start 12/04/24 at 21:00; Stop 01/03/25 at 20:59 Metoprolol Succinate 50 mg DAILY PO Last administered on 12/05/24at 09:57; Start 12/05/24 at 09:00; Stop 01/04/25 at 08:59 Rivaroxaban 20 mg HS PO; Start 12/04/24 at 21:00; Stop 12/04/24 at 20:10; Status DC Timolol Maleate 1 ML BID OU Last administered on 12/05/24at 09:57; Start 12/04/24 at 21:00; Stop 01/03/25 at 20:59 Alendronate Sodium 70 mg QWEEK@0630 PO; Start 12/11/24 at 06:30; Stop 01/10/25 at 06:29 Home Med HS OU; Start 12/04/24 at 21:00; Stop 01/03/25 at 20:59 Nifedipine 30 mg DAILY PO; Start 12/05/24 at 09:00; Stop 01/04/25 at 08:59 Atorvastatin Calcium 80 mg HS PO Last administered on 12/04/24at 20:13; Start 12/04/24 at 21:00; Stop 01/03/25 at 20:59 Losartan Potassium 50 mg ONCE PO Last administered on 12/04/24at 20:19; Start 12/04/24 at 20:00; Stop 12/04/24 at 23:59; Status DC Rivaroxaban 20 mg DAILY13 PO Last administered on 12/05/24at 15:13; Start 12/04/24 at 20:30; Stop 01/03/25 at 20:59 SHAWNA BANERJEE MD Dec 05, 2024 17:26
[2024-12-06] VITALS: BP 101/51; PULSE 66; RESP 17; TEMP 96
[2024-12-06 04:00] VITALS: BP 113/55; PULSE 63; RESP 17; TEMP 96
[2024-12-06 08:00] VITALS: BP 90/57; PULSE 55; RESP 16; TEMP 97.4; O2SAT 98
--- NOTE | 2024-12-06 08:25 | NUR ---
NURSE NOTE HELP PT 0900 BP MEDS FOR BP AT 94/51. WILL CONTINUE TO MONITOR.
[2024-12-06 12:30] VITALS: BP 122/63; PULSE 62; RESP 16; TEMP 98.4
--- NOTE | 2024-12-06 15:20 | PN ---
Postop day #2 Status post right total knee arthroplasty. Vital signs stable, afebrile. Patient informed about the findings of the surgery. She has adequate pain control. Did well with physical therapy but not bending knee She is awake, alert and oriented She is in no respiratory distress Dressing is intact,malfunctioning after shower due to loose connection, which is corrected. Distal neurovascular exam is normal. Assessment: Status post right total knee arthroplasty. Plan: Case management working on placement. Continue physical therapy Vitals/Labs Vital Signs Date Time Temp Pulse Resp B/P (MAP) Pulse Ox O2 Delivery O2 Flow Rate FiO2 12/06/24 08:00 98 Room Air* 0 21 12/06/24 08:00 97.3 55 16 90/57 Medications Current Medications Tranexamic Acid 1,000 mg STK-MED ONCE .ROUTE; Start 12/04/24 at 06:57; Stop 12/04/24 at 06:58; Status DC Vancomycin HCl 100 ml @ As Directed STK-MED ONCE IV; Start 12/04/24 at 06:57; Stop 12/04/24 at 06:58; Status DC Cefazolin Sodium 1 gm STK-MED ONCE .ROUTE; Start 12/04/24 at 06:58; Stop 12/04/24 at 06:58; Status DC Lidocaine HCl 100 mg STK-MED ONCE .ROUTE; Start 12/04/24 at 07:12; Stop 12/04/24 at 07:12; Status DC Dexamethasone Sodium Phosphate 10 mg STK-MED ONCE .ROUTE; Start 12/04/24 at 07:12; Stop 12/04/24 at 07:12; Status DC Succinylcholine Chloride 200 mg STK-MED ONCE .ROUTE; Start 12/04/24 at 07:12; Stop 12/04/24 at 07:12; Status DC Propofol 200 mg STK-MED ONCE IV; Start 12/04/24 at 07:13; Stop 12/04/24 at 07:13; Status DC Midazolam HCl 2 mg STK-MED ONCE .ROUTE; Start 12/04/24 at 07:13; Stop 12/04/24 at 07:13; Status DC Fentanyl Citrate 100 mcg STK-MED ONCE .ROUTE; Start 12/04/24 at 07:13; Stop 12/04/24 at 07:14; Status DC Ketamine HCl 50 mg STK-MED ONCE .ROUTE; Start 12/04/24 at 07:16; Stop 12/04/24 at 07:16; Status DC Rocuronium [place] 50 mg STK-MED ONCE .ROUTE; Start 12/04/24 at 07:16; Stop 12/04/24 at 07:16; Status DC Phenylephrine HCl 10 mg STK-MED ONCE IV; Start 12/04/24 at 07:21; Stop 12/04/24 at 07:21; Status DC Ropivacaine 150 mg STK-MED ONCE .ROUTE; Start 12/04/24 at 07:21; Stop 12/04/24 at 07:22; Status DC Cefazolin Sodium 2 gm STK-MED ONCE .ROUTE; Start 12/04/24 at 07:42; Stop 12/04/24 at 07:42; Status DC Lactated Ringer's 1,000 ml @ As Directed STK-MED ONCE IV Last administered on 12/04/24at 09:01; Start 12/04/24 at 07:42; Stop 12/04/24 at 07:43; Status DC Ephedrine Sulfate 50 mg STK-MED ONCE .ROUTE; Start 12/04/24 at 09:20; Stop 12/04/24 at 09:20; Status DC Fentanyl Citrate 100 mcg STK-MED ONCE .ROUTE; Start 12/04/24 at 10:00; Stop 12/04/24 at 10:00; Status DC Cefazolin Sodium 2 gm STK-MED ONCE IVPB Last administered on 12/04/24at 09:32; Start 12/04/24 at 09:32; Stop 12/04/24 at 10:05; Status DC Tranexamic Acid 1,000 mg STK-MED ONCE IV Last administered on 12/04/24at 09:35; Start 12/04/24 at 09:35; Stop 12/04/24 at 10:05; Status DC Cefazolin Sodium 3 gm STK-MED ONCE IVPB Last administered on 12/04/24at 09:49; Start 12/04/24 at 09:49; Stop 12/04/24 at 10:05; Status DC Vancomycin HCl 500 mg STK-MED ONCE IJ Last administered on 12/04/24at 10:00; Start 12/04/24 at 10:00; Stop 12/04/24 at 10:05; Status DC Rocuronium [place] 50 mg STK-MED ONCE .ROUTE; Start 12/04/24 at 10:22; Stop 12/04/24 at 10:22; Status DC Sodium Chloride 1,000 ml @ 100 mls/hr Q10H IV Last administered on 12/05/24at 02:11; Start 12/04/24 at 11:30; Stop 12/05/24 at 03:45; Status DC Polyethylene Glycol 17 gm DAILY PO Last administered on 12/06/24at 08:43; Start 12/05/24 at 09:00; Stop 01/04/25 at 08:59 Bisacodyl 10 mg DAILY PRN RC; Start 12/07/24 at 11:30; Stop 01/06/25 at 11:29 Ketorolac Tromethamine 15 mg Q6H PRN IV Last administered on 12/05/24at 17:00; Start 12/04/24 at 11:30; Stop 12/09/24 at 11:29 Famotidine 20 mg BID PO Last administered on 12/06/24at 08:43; Start 12/04/24 at 21:00; Stop 01/03/25 at 20:59 Ferrous Fumarate 324 mg DAILY PRN PO; Start 12/04/24 at 11:30; Stop 01/03/25 at 11:29 Temazepam 15 mg HS PRN PO; Start 12/04/24 at 11:30; Stop 01/03/25 at 11:29 Ondansetron HCl 4 mg Q6H PRN IVP; Start 12/04/24 at 11:30; Stop 01/03/25 at 11:29 Calcium Carbonate 500 mg Q12H PRN PO; Start 12/04/24 at 11:30; Stop 01/03/25 at 11:29 Diphenhydramine HCl 25 mg Q6H PRN IVP; Start 12/04/24 at 11:30; Stop 01/03/25 at 11:29 Cefazolin Sodium 2 gm Q8H IVPB Last administered on 12/04/24at 23:32; Start 12/04/24 at 16:30; Stop 12/05/24 at 00:31; Status DC Potassium Chloride 100 ml @ 100 mls/hr AD PRN IV; Start 12/04/24 at 11:30; Stop 01/03/25 at 11:29 Potassium Chloride 20 meq AD PRN PO; Start 12/04/24 at 11:30; Stop 01/03/25 at 11:29 Potassium Chloride 20 meq AD PRN PO Last administered on 12/04/24at 20:13; Start 12/04/24 at 11:30; Stop 01/03/25 at 11:29 Acetaminophen/ Hydrocodone Bitart Q4H PRN PO; Start 12/04/24 at 11:30; Stop 12/04/24 at 11:29; Status DC Acetaminophen/ Hydrocodone Bitart 1 tab Q4H PRN PO; Start 12/04/24 at 11:30; Stop 12/09/24 at 11:29 Acetaminophen/ Hydrocodone Bitart 2 tab Q4H PRN PO Last administered on 12/06/24at 10:44; Start 12/04/24 at 11:30; Stop 12/09/24 at 11:29 Fentanyl Citrate 25 mcg ONCE ONCE IVP; Start 12/04/24 at 12:00; Stop 12/04/24 at 12:01; Status DC Fentanyl Citrate 100 mcg STK-MED ONCE .ROUTE Last administered on 12/04/24at 11:51; Start 12/04/24 at 11:46; Stop 12/04/24 at 11:46; Status DC HCTZ/Losartan Potassium 1 tab BID PO Last administered on 12/05/24at 19:58; Start 12/04/24 at 21:00; Stop 01/03/25 at 20:59 Metoprolol Succinate 50 mg DAILY PO Last administered on 12/05/24at 09:57; Start 12/05/24 at 09:00; Stop 01/04/25 at 08:59 Rivaroxaban 20 mg HS PO; Start 12/04/24 at 21:00; Stop 12/04/24 at 20:10; Status DC Timolol Maleate 1 ML BID OU Last administered on 12/06/24at 08:44; Start 12/04/24 at 21:00; Stop 01/03/25 at 20:59 Alendronate Sodium 70 mg QWEEK@0630 PO; Start 12/11/24 at 06:30; Stop 01/10/25 at 06:29 Home Med HS OU; Start 12/04/24 at 21:00; Stop 01/03/25 at 20:59 Nifedipine 30 mg DAILY PO; Start 12/05/24 at 09:00; Stop 01/04/25 at 08:59 Atorvastatin Calcium 80 mg HS PO Last administered on 12/05/24at 19:58; Start 12/04/24 at 21:00; Stop 01/03/25 at 20:59 Losartan Potassium 50 mg ONCE PO Last administered on 12/04/24at 20:19; Start 12/04/24 at 20:00; Stop 12/04/24 at 23:59; Status DC Rivaroxaban 20 mg DAILY13 PO Last administered on 12/06/24at 12:58; Start 12/04/24 at 20:30; Stop 01/03/25 at 20:59 SHAWNA BANERJEE MD Dec 06, 2024 15:20
[2024-12-06 16:00] VITALS: BP 127/74; PULSE 71; RESP 16; TEMP 97.5
[2024-12-06 20:00] VITALS: BP 120/65; PULSE 73; RESP 18; TEMP 98.2; O2SAT 97
[2024-12-07] VITALS (8 sets, daily range): BP systolic 95–131; BP diastolic 44–75; PULSE 65–90; RESP 17–19; TEMP 98–99.8; O2SAT 95
--- NOTE | 2024-12-07 09:04 | NUR ---
NURSE NOTE HELD PT 0900 BP MEDS LOSARTAN AND ADALAT FOR BP OF 95/56. WILL CONTINUE TO MONITOR. Addendum: 12/07/24 at 1124 by DAMON ANTONIO LVN LVN per dr la continue hold on bp medications.
--- NOTE | 2024-12-07 11:24 | PN ---
Postop day #3 Status post right total knee arthroplasty. Vital signs stable, afebrile. She has adequate pain control. Did well with physical therapy, ambulated 50 ft, sat for a while fefore PT and is bending knee better She is awake, alert and oriented She is in no respiratory distress Dressing is intact, functioning well, minor bloody spots Distal neurovascular exam is normal. Assessment: Status post right total knee arthroplasty. Plan: Case management working on placement. Continue physical therapy Vitals/Labs Vital Signs Date Time Temp Pulse Resp B/P (MAP) Pulse Ox O2 Delivery O2 Flow Rate FiO2 12/07/24 08:02 95 Room Air* 0 21 12/07/24 08:00 98.1 78 19 95/56 Medications Current Medications Tranexamic Acid 1,000 mg STK-MED ONCE .ROUTE; Start 12/04/24 at 06:57; Stop 12/04/24 at 06:58; Status DC Vancomycin HCl 100 ml @ As Directed STK-MED ONCE IV; Start 12/04/24 at 06:57; Stop 12/04/24 at 06:58; Status DC Cefazolin Sodium 1 gm STK-MED ONCE .ROUTE; Start 12/04/24 at 06:58; Stop 12/04/24 at 06:58; Status DC Lidocaine HCl 100 mg STK-MED ONCE .ROUTE; Start 12/04/24 at 07:12; Stop 12/04/24 at 07:12; Status DC Dexamethasone Sodium Phosphate 10 mg STK-MED ONCE .ROUTE; Start 12/04/24 at 07: 12; Stop 12/04/24 at 07:12; Status DC Succinylcholine Chloride 200 mg STK-MED ONCE .ROUTE; Start 12/04/24 at 07:12; Stop 12/04/24 at 07:12; Status DC Propofol 200 mg STK-MED ONCE IV; Start 12/04/24 at 07:13; Stop 12/04/24 at 07:13; Status DC Midazolam HCl 2 mg STK-MED ONCE .ROUTE; Start 12/04/24 at 07:13; Stop 12/04/24 at 07:13; Status DC Fentanyl Citrate 100 mcg STK-MED ONCE .ROUTE; Start 12/04/24 at 07:13; Stop 12/04/24 at 07:14; Status DC Ketamine HCl 50 mg STK-MED ONCE .ROUTE; Start 12/04/24 at 07:16; Stop 12/04/24 at 07:16; Status DC Rocuronium [place] 50 mg STK-MED ONCE .ROUTE; Start 12/04/24 at 07:16; Stop 12/04/24 at 07:16; Status DC Phenylephrine HCl 10 mg STK-MED ONCE IV; Start 12/04/24 at 07:21; Stop 12/04/24 at 07:21; Status DC Ropivacaine 150 mg STK-MED ONCE .ROUTE; Start 12/04/24 at 07:21; Stop 12/04/24 at 07:22; Status DC Cefazolin Sodium 2 gm STK-MED ONCE .ROUTE; Start 12/04/24 at 07:42; Stop 12/04/24 at 07:42; Status DC Lactated Ringer's 1,000 ml @ As Directed STK-MED ONCE IV Last administered on 12/04/24at 09:01; Start 12/04/24 at 07:42; Stop 12/04/24 at 07:43; Status DC Ephedrine Sulfate 50 mg STK-MED ONCE .ROUTE; Start 12/04/24 at 09:20; Stop 12/04/24 at 09:20; Status DC Fentanyl Citrate 100 mcg STK-MED ONCE .ROUTE; Start 12/04/24 at 10:00; Stop 12/04/24 at 10:00; Status DC Cefazolin Sodium 2 gm STK-MED ONCE IVPB Last administered on 12/04/24at 09:32; Start 12/04/24 at 09:32; Stop 12/04/24 at 10:05; Status DC Tranexamic Acid 1,000 mg STK-MED ONCE IV Last administered on 12/04/24at 09:35; Start 12/04/24 at 09:35; Stop 12/04/24 at 10:05; Status DC Cefazolin Sodium 3 gm STK-MED ONCE IVPB Last administered on 12/04/24at 09:49; Start 12/04/24 at 09:49; Stop 12/04/24 at 10:05; Status DC Vancomycin HCl 500 mg STK-MED ONCE IJ Last administered on 12/04/24at 10:00; Start 12/04/24 at 10:00; Stop 12/04/24 at 10:05; Status DC Rocuronium [place] 50 mg STK-MED ONCE .ROUTE; Start 12/04/24 at 10:22; Stop 12/04 at 10:22; Status DC Sodium Chloride 1,000 ml @ 100 mls/hr Q10H IV Last administered on 12/05/24at 02:11; Start 12/04/24 at 11:30; Stop 12/05/24 at 03:45; Status DC Polyethylene Glycol 17 gm DAILY PO Last administered on 12/07/24at 09:00; Start 12/05/24 at 09:00; Stop 01/04/25 at 08:59 Bisacodyl 10 mg DAILY PRN RC; Start 12/07/24 at 11:30; Stop 01/06/25 at 11:29 Ketorolac Tromethamine 15 mg Q6H PRN IV Last administered on 12/07/24at 00:21; Start 12/04/24 at 11:30; Stop 12/09/24 at 11:29 Famotidine 20 mg BID PO Last administered on 12/07/24at 09:00; Start 12/04/24 at 21:00; Stop 01/03/25 at 20:59 Ferrous Fumarate 324 mg DAILY PRN PO; Start 12/04/24 at 11:30; Stop 01/03/25 at 11:29 Temazepam 15 mg HS PRN PO; Start 12/04/24 at 11:30; Stop 01/03/25 at 11:29 Ondansetron HCl 4 mg Q6H PRN IVP; Start 12/04/24 at 11:30; Stop 01/03/25 at 11:29 Calcium Carbonate 500 mg Q12H PRN PO; Start 12/04/24 at 11:30; Stop 01/03/25 at 11:29 Diphenhydramine HCl 25 mg Q6H PRN IVP; Start 12/04/24 at 11:30; Stop 01/03/25 at 11:29 Cefazolin Sodium 2 gm Q8H IVPB Last administered on 12/04/24at 23:32; Start 12/04/24 at 16:30; Stop 12/05/24 at 00:31; Status DC Potassium Chloride 100 ml @ 100 mls/hr AD PRN IV; Start 12/04/24 at 11:30; Stop 01/03/25 at 11:29 Potassium Chloride 20 meq AD PRN PO; Start 12/04/24 at 11:30; Stop 01/03/25 at 11:29 Potassium Chloride 20 meq AD PRN PO Last administered on 12/04/24at 20:13; Start 12/04/24 at 11:30; Stop 01/03/25 at 11:29 Acetaminophen/ Hydrocodone Bitart Q4H PRN PO; Start 12/04/24 at 11:30; Stop 12/04/24 at 11:29; Status DC Acetaminophen/ Hydrocodone Bitart 1 tab Q4H PRN PO; Start 12/04/24 at 11:30; Stop 12/09/24 at 11:29 Acetaminophen/ Hydrocodone Bitart 2 tab Q4H PRN PO Last administered on 12/07/24at 06:11; Start 12/04/24 at 11:30; Stop 12/09/24 at 11:29 Fentanyl Citrate 25 mcg ONCE ONCE IVP; Start 12/04/24 at 12:00; Stop 12/04/24 at 12:01; Status DC Fentanyl Citrate 100 mcg STK-MED ONCE .ROUTE Last administered on 12/04/24at 11:51; Start 12/04/24 at 11:46; Stop 12/04/24 at 11:46; Status DC HCTZ/Losartan Potassium 1 tab BID PO Last administered on 12/06/24at 20:01; Start 12/04/24 at 21:00; Stop 01/03/25 at 20:59 Metoprolol Succinate 50 mg DAILY PO Last administered on 12/05/24at 09:57; Start 12/05/24 at 09:00; Stop 01/04/25 at 08:59 Rivaroxaban 20 mg HS PO; Start 12/04/24 at 21:00; Stop 12/04/24 at 20:10; Status DC Timolol Maleate 1 ML BID OU Last administered on 12/07/24at 09:01; Start 12/04/24 at 21:00; Stop 01/03/25 at 20:59 Alendronate Sodium 70 mg QWEEK@0630 PO; Start 12/11/24 at 06:30; Stop 01/10/25 at 06:29 Home Med HS OU Last administered on 12/06/24at 20:02; Start 12/04/24 at 21:00; Stop 01/03/25 at 20:59 Nifedipine 30 mg DAILY PO; Start 12/05/24 at 09:00; Stop 01/04/25 at 08:59 Atorvastatin Calcium 80 mg HS PO Last administered on 12/06/24at 20:01; Start 12/04/24 at 21:00; Stop 01/03/25 at 20:59 Losartan Potassium 50 mg ONCE PO Last administered on 12/04/24at 20:19; Start 12/04/24 at 20:00; Stop 12/04/24 at 23:59; Status DC Rivaroxaban 20 mg DAILY13 PO Last administered on 12/06/24at 12:58; Start 12/04/24 at 20:30; Stop 01/03/25 at 20:59 SHAWNA BANERJEE MD Dec 07, 2024 11:24
[2024-12-08] VITALS (7 sets, daily range): BP systolic 104–150; BP diastolic 61–78; PULSE 81–88; RESP 17–18; TEMP 98.1–98.7; O2SAT 94–95
--- NOTE | 2024-12-08 11:21 | NUR ---
APRIL PLAN PATIENT ACCEPTED TO [facility] [phone]. CIELO LET DR. BANERJEE, NURSE AND CHARGE NURSE KNOW OF ACCEPTANCE. Addendum: 12/09/24 at 1123 by PALAK LINK RN Amended: Links added.
[2024-12-08] MEDS: HYDROcodone/APAP 5/325 1 TAB TABLET PO PRN (12:42)
[2024-12-09] VITALS: BP 99/62; PULSE 82; RESP 18; TEMP 98.7
[2024-12-09 04:00] VITALS: BP 110/55; PULSE 78; RESP 18; TEMP 98.7
[2024-12-09 08:00] VITALS: BP 108/63; PULSE 83; RESP 18; TEMP 98.4
[2024-12-09 09:15] VITALS: O2SAT 92
--- NOTE | 2024-12-09 09:17 | PN ---
Postop day 5. Vital signs stable, afebrile The patient has improved gradually being able to ambulate a longer distance and better control of the pain. She is awake, alert and oriented. Respiratory effort is normal The dressing is unchanged. Edema is unchanged. Patient has better active range of motion able to flex 90 Distal neurovascular normal. Assessment: Status post right total knee arthroplasty Plan: Apparently the patient was accepted to nursing rehab yesterday but I was not notified. The patient will be dismissed today. The dressing will be changed before dismissal. Vitals/Labs Vital Signs Date Time Temp Pulse Resp B/P (MAP) Pulse Ox O2 Delivery O2 Flow Rate FiO2 12/09/24 04:00 98.8 78 18 110/55 95 Room Air 12/08/24 20:00 0 21 Medications Current Medications Tranexamic Acid 1,000 mg STK-MED ONCE .ROUTE; Start 12/04/24 at 06:57; Stop 12/04/24 at 06:58; Status DC Vancomycin HCl 100 ml @ As Directed STK-MED ONCE IV; Start 12/04/24 at 06:57; Stop 12/04/24 at 06:58; Status DC Cefazolin Sodium 1 gm STK-MED ONCE .ROUTE; Start 12/04/24 at 06:58; Stop 12/04/24 at 06:58; Status DC Lidocaine HCl 100 mg STK-MED ONCE .ROUTE; Start 12/04/24 at 07:12; Stop 12/04/24 at 07:12; Status DC Dexamethasone Sodium Phosphate 10 mg STK-MED ONCE .ROUTE; Start 12/04/24 at 07:12; Stop 12/04/24 at 07:12; Status DC Succinylcholine Chloride 200 mg STK-MED ONCE .ROUTE; Start 12/04/24 at 07:12; Stop 12/04/24 at 07:12; Status DC Propofol 200 mg STK-MED ONCE IV; Start 12/04/24 at 07:13; Stop 12/04/24 at 07:13; Status DC Midazolam HCl 2 mg STK-MED ONCE .ROUTE; Start 12/04/24 at 07:13; Stop 12/04/24 at 07:13; Status DC Fentanyl Citrate 100 mcg STK-MED ONCE .ROUTE; Start 12/04/24 at 07:13; Stop 12/04/24 at 07:14; Status DC Ketamine HCl 50 mg STK-MED ONCE .ROUTE; Start 12/04/24 at 07:16; Stop 12/04/24 at 07:16; Status DC Rocuronium Brinkley 50 mg STK-MED ONCE .ROUTE; Start 12/04/24 at 07:16; Stop 12/04/24 at 07:16; Status DC Phenylephrine HCl 10 mg STK-MED ONCE IV; Start 12/04/24 at 07:21; Stop 12/04/24 at 07:21; Status DC Ropivacaine 150 mg STK-MED ONCE .ROUTE; Start 12/04/24 at 07:21; Stop 12/04/24 at 07:22; Status DC Cefazolin Sodium 2 gm STK-MED ONCE .ROUTE; Start 12/04/24 at 07:42; Stop 12/04/24 at 07:42; Status DC Lactated Ringer's 1,000 ml @ As Directed STK-MED ONCE IV Last administered on 12/04/24at 09:01; Start 12/04/24 at 07:42; Stop 12/04/24 at 07:43; Status DC Ephedrine Sulfate 50 mg STK-MED ONCE .ROUTE; Start 12/04/24 at 09:20; Stop 12/04/24 at 09:20; Status DC Fentanyl Citrate 100 mcg STK-MED ONCE .ROUTE; Start 12/04/24 at 10:00; Stop 12/04/24 at 10:00; Status DC Cefazolin Sodium 2 gm STK-MED ONCE IVPB Last administered on 12/04/24at 09:32; Start 12/04/24 at 09:32; Stop 12/04/24 at 10:05; Status DC Tranexamic Acid 1,000 mg STK-MED ONCE IV Last administered on 12/04/24at 09:35; Start 12/04/24 at 09:35; Stop 12/04/24 at 10:05; Status DC Cefazolin Sodium 3 gm STK-MED ONCE IVPB Last administered on 12/04/24at 09:49; Start 12/04/24 at 09:49; Stop 12/04/24 at 10:05; Status DC Vancomycin HCl 500 mg STK-MED ONCE IJ Last administered on 12/04/24at 10:00; Start 12/04/24 at 10:00; Stop 12/04/24 at 10:05; Status DC Rocuronium Brinkley 50 mg STK-MED ONCE .ROUTE; Start 12/04/24 at 10:22; Stop 12/04/24 at 10:22; Status DC Sodium Chloride 1,000 ml @ 100 mls/hr Q10H IV Last administered on 12/05/24at 02:11; Start 12/04/24 at 11:30; Stop 12/05/24 at 03:45; Status DC Polyethylene Glycol 17 gm DAILY PO Last administered on 12/09/24at 08:56; Start 12/05/24 at 09:00; Stop 01/04/25 at 08:59 Bisacodyl 10 mg DAILY PRN RC; Start 12/07/24 at 11:30; Stop 01/06/25 at 11:29 Ketorolac Tromethamine 15 mg Q6H PRN IV Last administered on 12/09/24at 09:12; Start 12/04/24 at 11:30; Stop 12/09/24 at 11:29 Famotidine 20 mg BID PO Last administered on 12/09/24at 08:56; Start 12/04/24 at 21:00; Stop 01/03/25 at 20:59 Ferrous Fumarate 324 mg DAILY PRN PO; Start 12/04/24 at 11:30; Stop 01/03/25 at 11:29 Temazepam 15 mg HS PRN PO; Start 12/04/24 at 11:30; Stop 01/03/25 at 11:29 Ondansetron HCl 4 mg Q6H PRN IVP; Start 12/04/24 at 11:30; Stop 01/03/25 at 11:29 Calcium Carbonate 500 mg Q12H PRN PO; Start 12/04/24 at 11:30; Stop 01/03/25 at 11:29 Diphenhydramine HCl 25 mg Q6H PRN IVP; Start 12/04/24 at 11:30; Stop 01/03/25 at 11:29 Cefazolin Sodium 2 gm Q8H IVPB Last administered on 12/04/24at 23:32; Start 12/04/24 at 16:30; Stop 12/05/24 at 00:31; Status DC Potassium Chloride 100 ml @ 100 mls/hr AD PRN IV; Start 12/04/24 at 11:30; Stop 01/03/25 at 11:29 Potassium Chloride 20 meq AD PRN PO; Start 12/04/24 at 11:30; Stop 01/03/25 at 11:29 Potassium Chloride 20 meq AD PRN PO Last administered on 12/04/24at 20:13; Start 12/04/24 at 11:30; Stop 01/03/25 at 11:29 Acetaminophen/ Hydrocodone Bitart Q4H PRN PO; Start 12/04/24 at 11:30; Stop 12/04/24 at 11:29; Status DC Acetaminophen/ Hydrocodone Bitart 1 tab Q4H PRN PO Last administered on 12/08/24at 12:42; Start 12/04/24 at 11:30; Stop 12/09/24 at 11:29 Acetaminophen/ Hydrocodone Bitart 2 tab Q4H PRN PO Last administered on 12/09/24at 06:48; Start 12/04/24 at 11:30; Stop 12/09/24 at 11:29 Fentanyl Citrate 25 mcg ONCE ONCE IVP; Start 12/04/24 at 12:00; Stop 12/04/24 at 12:01; Status DC Fentanyl Citrate 100 mcg STK-MED ONCE .ROUTE Last administered on 12/04/24at 11:51; Start 12/04/24 at 11:46; Stop 12/04/24 at 11:46; Status DC HCTZ/Losartan Potassium 1 tab BID PO Last administered on 12/09/24at 08:56; Start 12/04/24 at 21:00; Stop 01/03/25 at 20:59 Metoprolol Succinate 50 mg DAILY PO Last administered on 12/05/24at 09:57; Start 12/05/24 at 09:00; Stop 01/04/25 at 08:59 Rivaroxaban 20 mg HS PO; Start 12/04/24 at 21:00; Stop 12/04/24 at 20:10; Status DC Timolol Maleate 1 ML BID OU Last administered on 12/09/24at 08:59; Start 12/04/24 at 21:00; Stop 01/03/25 at 20:59 Alendronate Sodium 70 mg QWEEK@0630 PO; Start 12/11/24 at 06:30; Stop 01/10/25 at 06:29 Home Med HS OU Last administered on 12/08/24at 20:52; Start 12/04/24 at 21:00; Stop 01/03/25 at 20:59 Nifedipine 30 mg DAILY PO; Start 12/05/24 at 09:00; Stop 01/04/25 at 08:59 Atorvastatin Calcium 80 mg HS PO Last administered on 12/08/24at 20:51; Start 12/04/24 at 21:00; Stop 01/03/25 at 20:59 Losartan Potassium 50 mg ONCE PO Last administered on 12/04/24at 20:19; Start 12/04/24 at 20:00; Stop 12/04/24 at 23:59; Status DC Rivaroxaban 20 mg DAILY13 PO Last administered on 12/08/24at 12:42; Start 12/04/24 at 20:30; Stop 01/03/25 at 20:59 SHAWNA BANERJEE MD Dec 09, 2024 09:17
--- NOTE | 2024-12-09 09:19 | DS ---
DISCHARGE SUMMARY [Date of admission: 12/04/2024 Date of discharge: 12/09/2024 Final diagnosis: Right Knee osteoarthritis Surgical procedures: Right total Knee arthroplasty on 12/04/2024 Summary of History and Physical: The patient is a 74 year-old female with history of severe arthrosis to the right knee that has been present for several years and has been treated conservatively with no longer adequate response to treatment. The patient is being admitted for total knee arthroplasty. Previous medical history: Obesity, Dislipidemia, paroxismal atrial fibrillation, HTN Previous surgical history: , R knee scope Family history: DM, HTN Social history: Negative for use of tobacco or alcohol. Allergies: NKDA. Review of system: Negative on admission Hospital course: The patient was admitted and taken to the operating room for a total knee arthroplasty, procedure that went uneventful. Postoperatively the patient remained hemodynamically stable and afebrile. The patient received an tibiotic and anticoagulation prophylaxis as per protocol. The patient was evaluated by physical therapy and started rehabilitation treatment with ambulation with the use of walker, weightbearing as tolerated, range of motion exercises and bed transfers. The patient was also evaluated by case management and arrangements were made for discharge. The patient tolerated diet well. On postop day #4 all the arrangements were completed. The dressing was changed and the wound was noted to be stable and the patient was dismissed on POD 5. Condition on discharge: Good Disposition: The patient will be dismissed to [facility] facility. Follow-up will be done at the office in 3 weeks. The patient is to continue with physical therapy and rehabilitation at [facility] and be ambulatory with the use of a walker, weightbearing as tolerated. Continue taking pain medication as instructed as well as anticoagulation prophylaxis. Continue with home medications also as instructed and continue with pre admission diet.] SHAWNA BANERJEE MD Dec 09, 2024 09:19
[2024-12-09] MEDS ORDERED: HYDR-4060 PO (09:54)
[2024-12-09 12:00] VITALS: BP 110/64; PULSE 76; RESP 18; TEMP 98.1
--- NOTE | 2024-12-09 12:53 | NUR ---
GAVE REPORT TO DONNA MARCELO WITH [facility]UE.
[2024-12-09] MEDS: HYDROcodone/APAP 5/325 1 TAB TABLET PO PRN (13:36)
--- NOTE | 2024-12-09 13:36 | NUR ---
DRESSING CHANGED [employer] DRESSING WAS REMOVED. SCANT AMOUNT OF SANGUINEOUS DRAINAGE FROM THE INCISION SITE. 4 STERI STRIPS WERE APPLIED TO INCISION. NEW [employer] DRESSING WAS APPLIED. DRESSING DRY AND INTACT. NO S/S OF DISCOMFORT. PT TOLERATED WELL.
--- NOTE | 2024-12-09 13:43 | NUR ---
DISCHARGED IV WAS REMOVED WITHOUT COMPLICATIONS. NO S/S OF DISTRESS. PATIENT VERBALIZED UNDERSTANDING EDUCATIONS ON DRESSING CHANGES AND FOLLOWING DRS ORDER. PT CURRENTLY AWAITING VAN FROM [facility] TO TRANSPORT TO FACILITY.
--- NOTE | 2024-12-09 15:48 | NUR ---
DISCHARGED/LEFT UNIT PATIENT WAS TRANSPORTED TO THE MAIN LOBBY VIA W/C BY [employer] DIRECTOR. FAMILY AT SIDE. NO S/S OF DISTRESS NOTED.
[2024-12-11] MEDS ORDERED: ALENDRONATE SODIUM 35 MG TAB PO SCH (06:30)
== END 2024-12-09 14:55 | DRG 462 ==
LOC: DAH 07:19 → OBSVTOIN 07:20 → DAHIP 07:20 → 4DH 12:40
PROVIDERS: ADMIT Orthopaedic Surgery; ATTEND Orthopaedic Surgery
PROC: 0SRC0J9 Replacement of Right Knee Joint with Synthetic Substitute, Cemented, Open Approach (ICD-10-PCS; 2024-12-04)
PROC: 0SRD0J9 Replacement of Left Knee Joint with Synthetic Substitute, Cemented, Open Approach (ICD-10-PCS; principal; 2024-12-04 09:48)
DX: M17.0 Bilateral primary osteoarthritis of knee (principal); E66.9 Obesity, unspecified; I10 Essential (primary) hypertension; I48.0 Paroxysmal atrial fibrillation; E78.5 Hyperlipidemia, unspecified; M71.20 Synovial cyst of popliteal space [Baker], unspecified knee; Z82.49 Family history of ischemic heart disease and other diseases of the circulatory system; Z83.3 Family history of diabetes mellitus; Z79.899 Other long term (current) drug therapy; Z68.35 Body mass index [BMI] 35.0-35.9, adult
CPT/HCPCS: 36415; 80048; 81001; 85025; 85027; 85610; 87086; 87641; 88304; 88311; 93005; C1776; G0378; J0330; J0690; J1100; J1885; J2003; J2250; J2371; J2704; J2795; J3010; J3373; J3490; J7120; A4213; A4215; A4221; A4222; A4223; A4649; A4663; A4930; A5120; A9272; C1713